=== PATIENT | female | born 1955 ===

== ENCOUNTER 2019-01-17 09:25 | Outpatient (CLI) | payer OTHER | END 2019-01-17 09:32 | disposition home or self-care (01) | LOC: SONOGRAMA 09:25 | DX: E04.1 Nontoxic single thyroid nodule (principal) ==

== ENCOUNTER 2024-08-08 07:37 | Outpatient (CLI) | payer OTHER | END 2024-08-08 07:46 | disposition home or self-care (01) | LOC: MRI 07:37 | PROVIDERS: ATTEND Specialist | DX: K80.20 Calculus of gallbladder without cholecystitis without obstruction (principal) | CPT/HCPCS: 74181 ==

== ENCOUNTER 2024-09-06 05:46 | Day surgery (SDC) | payer OTHER ==
[2024-08-17 09:13] LABS: HEMATOCRIT 37.3 % (36.0-45.00); HEMOGLOBIN 12.1 g/dL (12.0-15.00); MEAN CELL VOLUME 81.6 fL (80.00-100.00); MEAN CORPUSCULAR HEMOGLOBIN 26.5 pg (27.00-32.0); MEAN CORPUSCULAR HGB CONC 32.4 g/dl (32.0-36.0); PLATELET COUNT 185 K/uL (150-450); RED BLOOD COUNT 4.57 M/uL (4.00-6.00); RED CELL DISTRIBUTION WIDTH 16.2 % (11.5-14.5)
[2024-08-17 09:20] LABS: PH,URINE 6.5 (5.0-8.0); URINE APPEARANCE Clear; URINE BILIRRUBIN Negative (NEGATIVE); URINE BLOOD Negative; URINE COLOR Yellow; URINE GLUCOSE Negative (NEGATIVE); URINE KETONE Trace (NEGATIVE); URINE LEUKOCYTE Negative; URINE NITRATE Negative; URINE PROTEIN Negative (NEGATIVE); URINE UROBILINOGEN 0.2 E.U./dl
[2024-08-17 09:21] LABS: URINE BACTERIA 152.4 uL (0.0-1933); URINE EPITHELIAL CELLS 8.9 uL (0.0-38.8); URINE RBC 5.8 uL (0.0-20.8); URINE WBC 7.7 uL (0.0-23.2)
[2024-08-17 09:35] LABS: INR 1.02; PROTHROMBIN TIME 11.1 SECONDS (9.0-11.5)
[2024-08-17 09:58] LABS: ALBUMIN 3.5 gm/dL (3.4-5.0); BILIRUBIN TOTAL 0.39 mg/dL (0.3-1.2); CALCIUM 8.9 mg/dL (8.5-10.1); CREATININE SERUM 0.95 mg/dL (0.55-1.02); GFR 58.5; GLOBULINA 3.2 G/DL (2.4-3.5); POTASSIUM 4.76 mEq/L (3.5-5.1); TOTAL PROTEIN 6.7 gm/dL (6.4-8.2); TSH 0.933 uIU/mL (0.358-3.74)
[~2024-09-06 05:46] MED LIST: CYMBALTA60 MG PO; GRALISE600 MG PO; SYNTHROID50 MCG PO
[2024-09-06] MEDS ORDERED: CEFAZOLIN SODIUM 1,000 MG VIAL IV ONE (10:45)
[2024-09-06] MEDS ORDERED: FAMOTIDINE/PF 20 MG/2 ML VIAL IV NR (12:30)
[2024-09-06] MEDS ORDERED: CEFAZOLIN SODIUM 1,000 MG VIAL IV NR (12:30)
[2024-09-06] MEDS ORDERED: MORPHINE SULFATE 4 MG/ML VIAL IV ONE (13:35)
== END 2024-09-06 15:30 | disposition home or self-care (01) ==
LOC: CIR.AMB 05:46 → O/R 05:46 → SURH 05:46 → EDSTATUS 07:30 → SURH 07:30 → CIR.AMB 15:30 → O/R 15:30
PROVIDERS: ATTEND Specialist
DX: K80.10 Calculus of gallbladder with chronic cholecystitis without obstruction (principal)